=== PATIENT | male | born 1960 | race Caucasian/White ===

== ENCOUNTER 2019-07-16 08:04 | Emergency (ER) | payer BC ==
[~2019-07-16] VITALS: Ht 175.3 cm; Wt 86.2 kg
[2019-07-16] MEDS ORDERED: LISINOPRIL5 MG ORAL (08:17)
[2019-07-16] MEDS ORDERED: CIALIS5 MG PO (08:17)
--- NOTE | 2019-07-16 08:25 | NUR ---
ED Nurse Note: Patient presented to ED from home accompanied by son. Patient stated missing a step on the stairs with no fall. Left lower foot swollen with slight bruising. No open wound noted. Patient stated pain is currently at 2/10. Patient aao x 4 and ambulatory. No acute distress noted.
--- NOTE | 2019-07-16 09:02 | Emergency Room Report ---
History of Present Illness General Chief Complaint: Lower Extremity Injury Source: Patient Present Illness HPI This patient states that last night in the middle the night he went to use the restroom when he missed a step on the stairwell and injured his left foot. He has pain, swelling and bruising in the lateral aspect of the left foot. He has no other injuries or complaints. Allergies: Coded Allergies: No Known Allergies (Unverified , 07/16/19) Patient History Past Medical History: none, see triage record Social History: Denies: smoking, alcohol use, drug use Reviewed Nursing Documentation: PMH: Agreed; PSxH: Agreed Nursing Documentation-PM Past Medical History: No Stated History Review of Systems All Other Systems: negative except mentioned in HPI Physical Exam Vital Signs Date Time Temp Pulse Resp B/P (MAP) Pulse Ox O2 Delivery O2 Flow Rate FiO2 07/16/19 08:13 98.2 70 18 147/93 (111) 99 Room Air Sp02 EP Interpretation: reviewed, normal General Appearance: no apparent distress, alert, GCS 15, non-toxic Head: normocephalic, atraumatic Eyes: bilateral eye normal inspection ENT: hearing grossly normal, normal pharynx, no angioedema, normal voice Neck: normal inspection Respiratory: no respiratory distress, no retraction, no accessory muscle use, speaking full sentences Rectal: deferred Musculoskeletal: normal range of motion, other - Antalgic gait, +brusing, swelling, tenderness and deformity over the L. 5th Metatarsal. sensation intact throughout. Neurologic: alert, oriented x3, responsive, motor strength/tone normal, sensory intact, speech normal Psychiatric: judgement/insight normal, memory normal, mood/affect normal, no suicidal/homicidal ideation Skin: other - See above in [facility] Medical Decision Making Diagnostic Impression: Primary Impression: Fracture of 5th metatarsal ER Course This patient is found to have a minimally displaced fracture of the shaft of the fifth metatarsal on the left. The patient was given a hard soled postop shoe and a cane for comfort and immobilization. He was also educated that an air CAM Walker boot might provide him more comfort although would not provide any definitive improvement in healing. The patient stated that he has ibuprofen at home and does not feel that he needs any stronger pain medication. I educated the patient that he should follow-up in the approximately 1 week or less for repeat strain evaluation by orthopedics. He indicated understanding and intention to do so. The patient states that he is from [place] and will be home by Friday. I feel that this is an appropriate follow-up time and that he does not need emergency orthopedic evaluation at this time. Patient is given close return precautions and follow-up instructions. Other X-Ray Diagnostic Results Other X-Ray Diagnostic Results : X-Ray ordered: L. Foot # of Views/Limited Vs Complete: Complete Indication: Pain EP Interpretation: Yes Interpretation: other - Minimally displaced shaft fracture of L. metacarpal Impression: Other - Fracture L. 5th MT as above. Electronically Signed by: Alondra Neely DO Last Vital Signs Date Time Temp Pulse Resp B/P (MAP) Pulse Ox O2 Delivery O2 Flow Rate FiO2 07/16/19 08:13 98.2 70 18 147/93 (111) 99 Room Air Status: improved Disposition: HOME, SELF-CARE Condition: Improved Referrals: NON PHYSICIAN (PCP) Alondra Neely DO Jul 16, 2019 09:02
--- NOTE | 2019-07-16 09:17 | NUR ---
ED Nurse Note: Cane and orthopedic shoes provided and applied by FOSTER Boothe.
--- NOTE | 2019-07-16 09:19 | Diagnostic Imaging Report ---
Indication: Foot Pain Comparison: None Findings: 3 views of the right foot were obtained. There is an acute fracture involving the mid and distal shaft of the fifth metatarsal. There is overlying soft tissue swelling. No other fractures are identified. IMPRESSION: Acute fifth metatarsal fracture
[2019-07-16 09:58] VITALS: BP 139/89
--- NOTE | 2019-07-16 10:00 | NUR ---
ED Nurse Note: Patient cleared by MD for discharge. DC instructions given and explained to patient and verbalized understanding. Patient ID band removed. Pt is AAO x4, ambulatory and left with all personal belongings. Patient stable upon discharge.
== END 2019-07-16 09:58 | disposition home or self-care (01) ==
LOC: EMR 08:39
DX: S92.352A Displaced fracture of fifth metatarsal bone, left foot, initial encounter for closed fracture (principal); X58.XXXA Exposure to other specified factors, initial encounter; Y92.9 Unspecified place or not applicable
CPT/HCPCS: 99283